=== PATIENT | male | born 1945 | race Caucasian/White ===

== ENCOUNTER 2017-05-29 19:28 | Emergency (ER) | payer MEDICARE ==
[2017-05-29] MEDS ORDERED: BACIGUENT PACKET TP ONE (19:36)
[2017-05-29] MEDS ORDERED: Adacel Vial IM ONE ×3 (19:36→19:45)
[2017-05-29 19:38] VITALS: BP 121/89; PULSE 90; O2SAT 97
[2017-05-29] MEDS ORDERED: BACIGUENT PACKET ONE (19:39)
--- NOTE | 2017-05-29 19:43 | ERPHSYRPT ---
- History of Present Illness Time Seen by Provider: 05/29/17 19:30 Source: patient, family () Exam Limitations: no limitations Physician History: the patient suffered a laceration to the right forearm a few minutes prior to admission when the wind blew the screen door open and look caught the dorsum of the right mid forearm; no other injuries; no other complaints; right handed; tetanus not current and will be brought up-to-date; no numbness or paresthesias distal; local soreness and swelling; minimal bleeding; otherwise acutely healthy ; here with his Occurred: just prior to arrival, this evening Method of Injury: direct blow, incised Quality: aching Severity of Pain-Max: mild Severity of Pain-Current: none Extremities Pain Location: arm: right (mid dorsal) Modifying Factors: Improves With: nothing Associated Symptoms: none Allergies/Adverse Reactions: No Known Drug Allergies Allergy (Verified 01/08/15 20:20) Home Medications: Albuterol 8 gm Mdi Hfa [Ventolin Hfa MDI] 8 gm IH Q4HPRN PRN 01/09/15 [ History] Calcium Citrate/Vitamin D2 [Ab-Citrate Plus Vitamin D Tab] 1 each PO DAILY [History] Esomeprazole Magnesium [Nexium] 40 mg PO DAILY 01/09/15 [History] Loratadine 10 mg [Claritin 10 mg] 10 mg PO DAILY 01/09/15 [History] Simvastatin 20 mg PO DAILY 01/09/15 [History] Vit C/Vit E/Lutein/Min/[place]uthers-3 [Ocuvite Softgel] 1 each PO DAILY 01/09/15 [ History] Hx Tetanus, Diphtheria Vaccination/Date Given: Yes Hx Influenza Vaccination/Date Given: No - Review of Systems Constitutional: No Symptoms Eyes: No Symptoms Ears, Nose, & Throat: No Symptoms Respiratory: No Cough, No Dyspnea, No Wheezing Cardiac: No Chest Pain, No Palpitations, No Syncope Abdominal/Gastrointestinal: No Abdominal Pain, No Nausea, No Vomiting, No Diarrhea Genitourinary Symptoms: No Symptoms Musculoskeletal: Injury (right midforearm), No Back Pain, No Neck Pain, No Fall , No Joint Redness, No Joint Pain Skin: Other (abrasion, laceration, puncture wound right mid forearm dorsally) Neurological: No Focal Weakness, No Paralysis, No Parasthesia Psychological: No Symptoms Endocrine: No Symptoms Immunological/Allergic: No Symptoms - Past Medical History Pertinent Past Medical History: Yes Neurological History: No Pertinent History ENT History: No Pertinent History Cardiac History: High Cholesterol Respiratory History: No Pertinent History Endocrine Medical History: No Pertinent History Musculoskeletal History: No Pertinent History GI Medical History: GERD History: No Pertinent History Psycho-Social History: No Pertinent History Male Reproductive Disorders: No Pertinent History - Past Surgical History Past Surgical History: Yes Neuro Surgical History: No Pertinent History Cardiac: No Pertinent History Respiratory: No Pertinent History Gastrointestinal: No Pertinent History Genitourinary: No Pertinent History Musculoskeletal: Orthopedic Surgery Male Surgical History: No Pertinent History Other Surgical History: right rotator cuff surgery may 2014, cyst removed from scalp in , hernia repair 2001, left ankle surgery ORIF 2003, hardware removed 2005 - Social History Smoking Status: Never smoker Exposure to second hand smoke: No Alcohol Use: Socially Drug Use: none Patient Lives Alone: No Significant Family History: no pertinent family hx - Physical Exam General Appearance: mild distress, alert, thin Eyes, Ears, Nose, Throat Exam: normal ENT inspection, TMs normal, pharynx normal , moist mucous membranes Neck Exam: normal inspection, non-tender, supple, full range of motion, No JVD Cardiovascular/Respiratory Exam: chest non-tender, normal breath sounds, regular rate/rhythm, heart sounds normal, no ecchymosis, no JVD, no M/R/G, no respiratory distress Abdominal Exam: non-tender, soft, no organomegaly Back Exam: normal inspection, normal range of motion, No CVA tenderness Shoulder Exam: normal inspection, non-tender, no evidence of injury, normal ROM Elbow/Forearm Exam: normal inspection, non-tender, no evidence of injury, normal ROM Wrist Exam: normal inspection, non-tender, no evidence of injury (Except mid right forearm dorsally with 2.5 cm abrasion; local induration; small puncture wound; no active bleeding; no foreign body), normal ROM Hand Exam: normal inspection, non-tender, no evidence of injury, normal ROM, laceration (superficial lacerations/abrasion 2.5 cm dorsum right mid forearm), No bone tenderness Neuro/Tendon Exam: normal sensation, normal motor functions, normal tendon functions, responds to pain, no evidence tendon injury Mental Status Exam: alert, oriented x 3, cooperative Skin Exam: normal color, warm, dry, abrasion (2.5 cm dorsum mid right forearm), other (small puncture wound with local induration at end of abrasion dorsal mid right forearm; minimal tenderness; no foreign body; no bleeding), No rash Procedures - Laceration/Wound Repair Right Medial Dorsal Arm Wound Location: Right, lower arm (abrasion/superficial laceration with small puncture wound without bleeding or foreign body;) Wound Length (cm): 2.5 Wound's Depth, Shape: superficial, linear Wound Explored: in bloodless field Irrigated: Yes Hibiclens Prep: Yes Wound Repaired With: Steri-strips Layer Closure?: No Sterile Dressing Applied?: Yes Splint Applied?: No Sling Applied?: No - Course Nursing assessment & vital signs reviewed: Yes Ordered Tests: Active Orders 24 hr Category Date Time Status Wound Care STAT Care 05/29/17 19:36 Ordered - Progress Progress: improved Progress Note: 05/29/17 19:45 treatment plan discussed; instructions given; tetanus given; Counseled pt/family regarding: diagnosis, need for follow-up - Departure Time of Disposition: 19:46 Departure Disposition: Home Clinical Impression: Laceration of right forearm without complication Condition: Stable Critical Care Time: No Instructions: Care for a Laceration After Repair, Laceration Repair Steri- Strips, Puncture Wound Additional Instructions: clean; bacitracin;elevate; ice; observe for infection;Tylenol or ibuprofen over- the-counter PRN Follow-up with family doctor as directed. Call for appointment. Return if any problems. If you smoke please stop. Call or follow up with your family doctor for assistance if you need it to stop. Please wear your seatbelt when driving. Have a nice day. Thank you for allowing us to participate in your care today. :o) Dr Rohit Ordoñez
== END 2017-05-29 20:00 | disposition home or self-care (01) ==
LOC: ED 19:28
PROC: 0HQDXZZ Repair Right Lower Arm Skin, External Approach (ICD-10-PCS; principal; 2017-05-29)
DX: S51.811A Laceration without foreign body of right forearm, initial encounter (principal); W22.8XXA Striking against or struck by other objects, initial encounter
CPT/HCPCS: 12001; 90471; 90715; 99283; A9270-GY

== ENCOUNTER 2020-03-27 05:54 | Day surgery (SDC) | payer MEDICARE ==
[2020-03-27] MEDS ORDERED: Lactated Ringers 1,000 ML IV SCH (06:30)
[2020-03-27 09:38] VITALS: BP 120/78; PULSE 58; O2SAT 96
--- NOTE | 2020-03-27 13:27 | OP ---
SURGERY DATE/TIME: 03/27/2020 0814 PREOPERATIVE DIAGNOSIS: Right lower quadrant abdominal pain and history of colon polyps. POSTOPERATIVE DIAGNOSIS: Sigmoid diverticulosis otherwise normal colon. PROCEDURE: Colonoscopy. SURGEON: Dr. Magana. ANESTHESIA: MAC. Medications given by anesthesia department. HISTORY: The patient is a 75 year-old white male patient who presents now with right lower quadrant abdominal pain. He reports his last colonoscopy was in 2012. He had colonoscopies done every three to four years prior to that time due to the presence of colon polyps. The patient is now felt to have endoscopic evaluation. He was appraised of the risks of the procedure including the risk of perforation, phlebitis, untoward reaction to medication, bleeding and missed lesions. The patient verbalized his understanding and desired to have the procedure performed. DESCRIPTION OF PROCEDURE: The patient was given the medications by the anesthesia department. He had continuous pulse oximetry, ECG monitoring, intermittent blood pressure monitoring and tidal CO2 monitoring during the examination. He was placed in the left lateral decubitus position. A digital rectal examination was performed and revealed normal anal sphincter tone, no masses and a normal prostate. The flexible Olympus pediatric colonoscope was used to intubate the rectum. A view of the colon was developed sequentially to the cecum as identified by the appendiceal orifice and ileocecal valve. Upon insertion and withdrawal, including a retroflex view in the rectum was noted small sigmoid diverticula otherwise no mucosal lesions were encountered. The scope was removed from the patient who tolerated the procedure well and was sent back to OP recovery in good condition. The prep was noted to be good.
== END 2020-03-27 09:50 | disposition home or self-care (01) ==
LOC: SDC 05:54
PROVIDERS: ATTEND Family Medicine
DX: K57.30 Diverticulosis of large intestine without perforation or abscess without bleeding (principal); Z86.010 Personal history of colon polyps
CPT/HCPCS: 99100

== ENCOUNTER 2022-04-07 06:43 | Emergency (ER) | payer MEDICARE ==
--- NOTE | 2022-04-07 07:22 | ERPHSYRPT ---
- History of Present Illness Time Seen by Provider: 04/07/22 07:10 Historian: patient Exam Limitations: no limitations Patient Subjective Stated Complaint: pt states he has had diarrhea since 0000, states he has some abdominal discomfort Triage Nursing Assessment: pt alert and oriented, answer questions appropriatly. abdominal pain is rated at 4/10 Physician History: This is a 77-year-old white male patient of Dr. Magana who is had no prior abdominal surgeries and his last colonoscopy was normal and was performed a pproximately 2 to 3 years ago and presents with sudden onset of crampy abdominal pain and multiple episodes of diarrhea since midnight last night. Diarrhea is not black or bloody. The stools ultimately became watery. He has never had any like this before. Patient arrives to the emergency department and has no more crampy abdominal pain that he was experiencing prior to arrival. He denies naus ea. He has no chest pain. He is a little short of breath. However he sees a diamond wheel molder for this and he wears a unit for sleep apnea at night. He presents with room air oxygen in the 70% range. 2 L oxygen was placed on him upon arrival to the emergency department and now his oxygen saturations are 99%. The crampy abdominal pain was bilateral lower quadrants. Patient has a history of sleep apnea, hypertension, elevated cholesterol, gastroesophageal reflux disease and COPD. Timing/Duration: today Quality: cramping Abdominal Pain Onset Location: RLQ, LLQ Pain Radiation: no radiation Severity of Pain-Max: moderate Severity of Pain-Current: none Associated Symptoms: diarrhea, No fever/chills, No vomiting Previous symptoms: no prior history Allergies/Adverse Reactions: No Known Drug Allergies Allergy (Verified 04/07/22 06:57) Home Medications: Albuterol 8 gm Mdi Hfa [Ventolin Hfa MDI] 8 gm IH Q4HPRN PRN 01/09/15 [History] Esomeprazole Magnesium [Nexium] 40 mg PO DAILY 01/09/15 [History] Simvastatin 20 mg PO DAILY 01/09/15 [History] Vit C/Vit E/Lutein/Min/[place]-3 [Ocuvite Softgel] 1 each PO DAILY 01/09/15 [History] Ascorbic Acid 500 mg [Vitamin C 500 MG] 1,000 mg PO DAILY 01/02/20 [History] Lactobacillus Acidophilus [Probiotic] 1 each PO DAILY 01/02/20 [History] Cholecalciferol (Vitamin D3) [Vitamin D3] 1,000 unit PO DAILY 03/27/20 [History] Aspirin 81 gm Chew [Baby Aspirin 81 mg Chew] 81 mg PO DAILY 04/07/22 [History] Metoprolol Tartrate 25 mg [Lopressor 25MG Tab] 25 mg PO DAILY 04/07/22 [ History] Hx Tetanus, Diphtheria Vaccination/Date Given: Yes Hx Influenza Vaccination/Date Given: Yes Hx Pneumococcal Vaccination/Date Given: Yes Immunizations Up to Date: Yes Travel Risk - International Travel Have you traveled outside of the country in past 3 weeks: No - Coronavirus Screening Are you exhibiting any of the following symptoms?: No Close contact with a COVID-19 positive Pt in past 14-21 Days: No - Vaccine Status Have you recieved a Covid-19 vaccination: Yes Utility Pipe Layer: Moderna - Vaccination Dates Date of 2cond Vaccination (if applicable): unknown - Review of Systems Constitutional: No Symptoms Eyes: No Symptoms Ears, Nose, & Throat: No Symptoms Respiratory: No Symptoms Cardiac: No Symptoms Abdominal/Gastrointestinal: Abdominal Pain (Bilateral lower quadrant cramping), Diarrhea, No Nausea, No Vomiting, No Constipation Genitourinary Symptoms: No Symptoms Musculoskeletal: No Symptoms Skin: No Symptoms Neurological: No Symptoms Psychological: No Symptoms Endocrine: No Symptoms Hematologic/Lymphatic: No Symptoms Immunological/Allergic: No Symptoms All Other Systems: Reviewed and Negative - Past Medical History Pertinent Past Medical History: Yes Neurological History: No Pertinent History ENT History: No Pertinent History Cardiac History: High Cholesterol, Other Respiratory History: Asthma, COPD, Other Endocrine Medical History: No Pertinent History Musculoskeletal History: No Pertinent History GI Medical History: GERD History: No Pertinent History Psycho-Social History: No Pertinent History Male Reproductive Disorders: No Pertinent History Other Medical History: heart murmur. Short of breath and sees Dr. Puentes. skin cancer on face - Past Surgical History Past Surgical History: Yes Neuro Surgical History: No Pertinent History Cardiac: No Pertinent History Respiratory: No Pertinent History Gastrointestinal: Hernia Repair Genitourinary: No Pertinent History Musculoskeletal: Orthopedic Surgery Male Surgical History: No Pertinent History Other Surgical History: right rotator cuff surgery may 2014, cyst removed from scalp in 1970s, hernia repair 2001, left ankle surgery ORIF 2003, hardware removed 2005 - Social History Smoking Status: Former smoker Exposure to second hand smoke: No Alcohol Use: Socially Drug Use: none Patient Lives Alone: No Significant Family History: no pertinent family hx - Nursing Vital Signs Nursing Vital Signs: Initial Vital Signs Temperature 98.6 F 04/07/22 06:46 Pulse Rate 57 L 04/07/22 06:46 Respiratory Rate 18 04/07/22 06:46 Blood Pressure 100/64 04/07/22 06:46 O2 Sat by Pulse Oximetry 99 04/07/22 06:46 Pain Scale Pain Intensity 4 - Physical Exam General Appearance: no apparent distress, alert Eye Exam: PERRL/EOMI, eyes nml inspection Ears, Nose, Throat Exam: normal ENT inspection, moist mucous membranes Neck Exam: normal inspection, non-tender, supple, full range of motion Respiratory Exam: normal breath sounds, lungs clear, airway intact, No chest tenderness, No respiratory distress Cardiovascular Exam: regular rate/rhythm, normal heart sounds, normal peripheral pulses Gastrointestinal/Abdomen Exam: soft, normal bowel sounds, tenderness (Mild bilateral lower quadrant tenderness to palpation), guarding, No rebound Rectal Exam: not done Back Exam: normal inspection, normal range of motion, No CVA tenderness, No vertebral tenderness Extremity Exam: normal inspection, normal range of motion, pelvis stable Neurologic Exam: alert, oriented x 3, cooperative, pan washer hand II-XII nml as tested Skin Exam: normal color, warm, dry Lymphatic Exam: No adenopathy SpO2 Interpretation: normal SpO2: 99 O2 Delivery: Room Air - Course Nursing assessment & vital signs reviewed: Yes Ordered Tests: Active Orders 24 hr Category Date Time Status IV Insertion STAT Care 04/07/22 07:23 Active ABDOMEN AND PELVIS W/0 CONTRAS [CT] Stat Exams 04/07/22 07:23 Completed AMYLASE Stat Lab 04/07/22 07:30 Completed CBC W DIFF Stat Lab 04/07/22 07:30 Completed CMP Stat Lab 04/07/22 07:30 Completed LIPASE Stat Lab 04/07/22 07:30 Completed Lactic Acid Stat Lab 04/07/22 07:23 Completed UA W/RFX CULTURE Stat Lab 04/07/22 Ordered Medication Summary Generic Name Dose Route Start Last Admin Trade Name Freq PRN Reason Stop Dose Admin Sodium Chloride 1,000 mls @ 100 mls/hr 04/07/22 07:30 04/07/22 07:26 Sodium Chloride 0.9% 1000 Ml IV 05/07/22 07:29 100 mls/hr .Q10H DARREN Administration Lab/Rad Data: Laboratory Result Diagrams 04/07/22 07:30 04/07/22 07:30 Laboratory Results 04/07/22 04/07/22 04/07/22 Range/Units 07:30 07:30 07:23 WBC 6.0 (4.0-10.5) x10^3/uL RBC 4.55 (4.1-5.6) x10^6/uL Hgb 14.8 (12.5-18.0) g/dL Hct 45.2 (42-50) % MCV 99.3 (78-100) fL MCH 32.5 H (26-32) pg MCHC 32.7 (32-36) g/dL RDW 12.9 (11.5-14.0) % Plt Count 164 (150-450) x10^3/uL MPV 9.6 (7.5-11.0) fL Gran % 78.8 H (36.0-66.0) % Immature Gran % (Auto) 0.5 H (0.00-0.4) % Nucleat RBC Rel Count 0.0 (0.00-0.1) % Eos # (Auto) 0.09 (0-0.5) x10^3/uL Immature Gran # (Auto) 0.03 (0.00-0.03) x10^3u/L Absolute Lymphs (auto) 0.84 L (1.0-4.6) x10^3/uL Absolute Monos (auto) 0.30 (0.0-1.3) x10^3/uL Absolute Nucleated RBC 0.00 (0.00-0.01) x10^3u/L Lymphocytes % 13.9 L (24.0-44.0) % Monocytes % 5.0 (0.0-12.0) % Eosinophils % 1.5 (0.00-5.0) % Basophils % 0.3 (0.0-0.4) % Absolute Granulocytes 4.75 (1.4-6.9) x10^3/uL Basophils # 0.02 (0-0.4) x10^3/uL Sodium 139 (137-145) mmol/L Potassium 4.8 (3.5-5.1) mmol/L Chloride 108 H (98-107) mmol/L Carbon Dioxide 26 (22-30) mmol/L Anion Gap 10.1 (5-15) MEQ/L BUN 16 (9-20) mg/dL Creatinine 0.95 (0.66-1.25) mg/dL Estimated GFR > 60.0 ML/MIN Glucose 124 H (74-106) mg/dL Lactic Acid 1.6 (0.4-2.0) Calcium 8.6 (8.4-10.2) mg/dL Total Bilirubin 1.10 (0.2-1.3) mg/dL AST 32 (17-59) U/L ALT 13 (0-50) U/L Alkaline Phosphatase 65 (38-126) U/L Serum Total Protein 5.8 L (6.3-8.2) g/dL Albumin 3.5 (3.5-5.0) g/dL Amylase 88 (30-110) U/L Lipase 79 (23-300) U/L - Progress Progress: improved, pain not gone completely Progress Note: 04/07/22 09:04 CAT scan of the abdomen pelvis shows new mild sigmoid diverticulitis. No other acute intra-abdominal or intrapelvic findings. Counseled pt/family regarding: lab results, diagnosis, need for follow-up, rad results - Departure Departure Disposition: Home Clinical Impression: Sigmoid diverticulitis Condition: Stable Critical Care Time: No Referrals: RAYMOND MAGANA [Primary Care Provider] - Follow up/PCP as directed Additional Instructions: Drink plenty of clear liquids. Take your antibiotics and medication as prescribed. Return to the emergency department if symptoms worsen. Follow-up with your primary care provider for further management. Prescriptions: Ondansetron ODT 4 MG [Zofran Odt 4 mg] 4 mg PO Q6H PRN PRN #10 tablet PRN Reason: Vomiting Ciprofloxacin [Cipro 500 MG] 500 mg PO BID #14 tablet Metronidazole 500 mg [Flagyl 500 MG] 500 mg PO TID #21 tablet
[2022-04-07] MEDS ORDERED: Sodium Chloride 0.9% 1000 ML 1,000 ML ONE (07:25)
[2022-04-07] MEDS ORDERED: Sodium Chloride 0.9% 1000 ML 1,000 ML IV SCH (07:30)
[2022-04-07 07:40] LABS: Absolute Neutrophil Ct (ANC) 4.75 x10^3/uL (1.4-6.9); Basophil (Absolute #) 0.02 x10^3/uL (0-0.4); Eosinophil % 1.5 % (0.00-5.0); Eosinophil (Absolute #) 0.09 x10^3/uL (0-0.5); Hematocrit 45.2 % (42-50); Hemoglobin 14.8 g/dL (12.5-18.0); Lymphocyte (Absolute #) 0.84 x10^3/uL (1.0-4.6); Lymphocytes % 13.9 % (24.0-44.0); Mean Cell Volume 99.3 fL (78-100); Mean Corpuscular Hemoglobin 32.5 pg (26-32); Mean Corpuscular Hgb Concent. 32.7 g/dL (32-36); Mean Platelet Volume 9.6 fL (7.5-11.0); Neutrophil % 78.8 % (36.0-66.0); Platelet Count 164 x10^3/uL (150-450); Red Blood Count 4.55 x10^6/uL (4.1-5.6); Red Cell Distribution Width 12.9 % (11.5-14.0)
[2022-04-07 07:49] LABS: ALBUMIN 3.5 g/dL (3.5-5.0); ALKALINE PHOSPHATASE 65 U/L (38-126); AMYLASE 88 U/L (30-110); ANION GAP 10.1 MEQ/L (5-15); BLOOD UREA NITROGEN 16 mg/dL (9-20); CHLORIDE 108 mmol/L (98-107); Calcium 8.6 mg/dL (8.4-10.2); Carbon Dioxide 26 mmol/L (22-30); Creatinine 1 0.95 mg/dL (0.66-1.25); EST GLOMERULAR FILTRATION RATE > 60.0 ML/MIN; Glucose 124 mg/dL (74-106); LIPASE 79 U/L (23-300); Potassium 4.8 mmol/L (3.5-5.1); SGOT/AST 32 U/L (17-59); SGPT/ALT 13 U/L (0-50); SODIUM 139 mmol/L (137-145); Total Protein 5.8 g/dL (6.3-8.2)
--- NOTE | 2022-04-07 08:39 | XRAY ---
Indication: Abdomen pain and diarrhea. Multiple contiguous axial images obtained through the abdomen and pelvis without contrast. Comparison: January 08, 2015. Lung bases clear. Heart not enlarged. Noncontrasted stomach and bowel loops appear nonobstructed with normal appendix. Again mild scattered sigmoid diverticulosis with new descending diverticulosis. Distal descending/proximal sigmoid demonstrates new minimal pericolonic stranding favoring diverticulitis. No free fluid/air. Gallbladder mildly distended without gallstones. Right kidney demonstrates new nonobstructing micro-calculi, largest 2 mm. Left kidney demonstrates stable parapelvic cysts. Remaining liver, gallbladder, pancreas, spleen, adrenal glands, kidneys, ureters, and bladder are unremarkable for noncontrast exam. Mild scattered aortoiliac calcifications without AAA. Osseous structures intact with mild osteopenia and mild/moderate degenerative changes throughout the thoracolumbar spine. Impression: 1. More diffuse scattered colonic diverticulosis. New mild distal descending/proximal sigmoid diverticulitis without complications. 2. Mild distended gallbladder without gallstones. Sonogram may yield further information if clinically warranted. 3. New nonobstructing right renal micro-calculi. Stable left renal cysts. 4. Again osteopenia and multilevel degenerative spondylosis.
[2022-04-07] MEDS ORDERED: Flagyl 500 MG PO ONE (09:06)
[2022-04-07] MEDS ORDERED: Levofloxacin 500 MG Tablet PO ONE (09:06)
[2022-04-07] MEDS ORDERED: Levofloxacin 500 MG Tablet ONE (09:12)
[2022-04-07] MEDS ORDERED: Flagyl 500 MG ONE (09:13)
[2022-04-07 10:11] VITALS: BP 112/68; PULSE 64; O2SAT 100
== END 2022-04-07 10:27 | disposition home or self-care (01) ==
LOC: ED 06:43
DX: K57.32 Diverticulitis of large intestine without perforation or abscess without bleeding (principal); R10.31 Right lower quadrant pain; R10.32 Left lower quadrant pain; R19.7 Diarrhea, unspecified; I10 Essential (primary) hypertension; E78.5 Hyperlipidemia, unspecified; J44.9 Chronic obstructive pulmonary disease, unspecified; Z79.899 Other long term (current) drug therapy
CPT/HCPCS: 36000; 36415; 74176; 80053; 82150; 83605; 83690; 85025; 99284; A9270-GY

== ENCOUNTER 2022-05-28 18:40 | Emergency (ER) | payer MEDICARE ==
--- NOTE | 2022-05-28 18:43 | ERPHSYRPT ---
- History of Present Illness Time Seen by Provider: 05/28/22 18:43 Source: patient Exam Limitations: no limitations Physician History: This is a right handed 77-year-old white male who was changing a carpet knife blade when it accidentally cut his left thumb. Patient is unsure of his last tetanus shot. He wanted to his laceration evaluated. Occurred: just prior to arrival Method of Injury: other Severity of Pain-Max: mild Severity of Pain-Current: none Extremities Pain Location: thumb: left Modifying Factors: Improves With: nothing Associated Symptoms: none Allergies/Adverse Reactions: No Known Drug Allergies Allergy (Verified 05/28/22 18:45) Home Medications: Albuterol 8 gm Mdi Hfa [Ventolin Hfa MDI] 8 gm IH Q4HPRN PRN 01/09/15 [History] Esomeprazole Magnesium [Nexium] 40 mg PO DAILY 01/09/15 [History] Simvastatin 20 mg PO DAILY 01/09/15 [History] Vit C/Vit E/Lutein/Min/[place]-3 [Ocuvite Softgel] 1 each PO DAILY 01/09/15 [History] Ascorbic Acid 500 mg [Vitamin C 500 MG] 1,000 mg PO DAILY 01/02/20 [History] Lactobacillus Acidophilus [Probiotic] 1 each PO DAILY 01/02/20 [History] Cholecalciferol (Vitamin D3) [Vitamin D3] 1,000 unit PO DAILY 03/27/20 [History] Aspirin 81 gm Chew [Baby Aspirin 81 mg Chew] 81 mg PO DAILY 04/07/22 [History] Metoprolol Tartrate 25 mg [Lopressor 25MG Tab] 25 mg PO DAILY 04/07/22 [History] Hx Tetanus, Diphtheria Vaccination/Date Given: Yes Hx Influenza Vaccination/Date Given: Yes Hx Pneumococcal Vaccination/Date Given: Yes Travel Risk - International Travel Have you traveled outside of the country in past 3 weeks: No - Coronavirus Screening Are you exhibiting any of the following symptoms?: No Close contact with a COVID-19 positive Pt in past 14-21 Days: No - Vaccine Status Have you recieved a Covid-19 vaccination: Yes 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 - Vaccination Dates Date of 2cond Vaccination (if applicable): unknown - Review of Systems Constitutional: No Symptoms Eyes: No Symptoms Ears, Nose, & Throat: No Symptoms Respiratory: No Symptoms Cardiac: No Symptoms Abdominal/Gastrointestinal: No Symptoms Genitourinary Symptoms: No Symptoms Musculoskeletal: No Symptoms Skin: Other (Laceration tip of left thumb) Neurological: No Symptoms Psychological: No Symptoms Endocrine: No Symptoms Hematologic/Lymphatic: No Symptoms Immunological/Allergic: No Symptoms All Other Systems: Reviewed and Negative - Past Medical History Pertinent Past Medical History: Yes Neurological History: No Pertinent History ENT History: No Pertinent History Cardiac History: High Cholesterol, Other Respiratory History: Asthma, COPD, Other Endocrine Medical History: No Pertinent History Musculoskeletal History: No Pertinent History GI Medical History: GERD History: No Pertinent History Psycho-Social History: No Pertinent History Male Reproductive Disorders: No Pertinent History Other Medical History: heart murmur. Short of breath and sees Dr. Puentes. skin cancer on face - Past Surgical History Past Surgical History: Yes Neuro Surgical History: No Pertinent History Cardiac: No Pertinent History Respiratory: No Pertinent History Gastrointestinal: Hernia Repair Genitourinary: No Pertinent History Musculoskeletal: Orthopedic Surgery Male Surgical History: No Pertinent History Other Surgical History: right rotator cuff surgery may 2014, cyst removed from scalp in , hernia repair 2001, left ankle surgery ORIF 2003, hardware removed 2005 - Social History Smoking Status: Former smoker Exposure to second hand smoke: No Alcohol Use: Socially Drug Use: none Patient Lives Alone: No Significant Family History: no pertinent family hx - Nursing Vital Signs Nursing Vital Signs: Initial Vital Signs Temperature 97.6 F 05/28/22 18:47 Pulse Rate 89 05/28/22 18:47 Respiratory Rate 18 05/28/22 18:47 Blood Pressure 116/73 05/28/22 18:47 O2 Sat by Pulse Oximetry 98 05/28/22 18:47 Pain Scale Pain Intensity 0 - Physical Exam General Appearance: no apparent distress, alert Eyes, Ears, Nose, Throat Exam: normal ENT inspection, moist mucous membranes Neck Exam: normal inspection, non-tender, supple, full range of motion Cardiovascular/Respiratory Exam: chest non-tender, no respiratory distress Abdominal Exam: non-tender Back Exam: normal inspection, normal range of motion, No CVA tenderness, No vertebral tenderness Shoulder Exam: normal inspection, non-tender, no evidence of injury, normal ROM Elbow/Forearm Exam: normal inspection, non-tender, no evidence of injury, normal ROM Wrist Exam: normal inspection, non-tender, no evidence of injury, normal ROM Hand Exam: non-tender, normal ROM, laceration (1 cm tip of left thumb. Semicircular skin flap without bleeding or foreign body. Neurovascularly intact. Tendons intact. No nail injury) Skin Exam: laceration (See above) SpO2 Interpretation: normal Procedures - Laceration/Wound Repair Left Distal Finger Time of Procedure: 19:30 Wound Location: Left Wound Length (cm): 1 Wound's Depth, Shape: superficial, flap Wound Explored: clean Irrigated: Yes Hibiclens Prep: Yes Wound Repaired With: Steri-strips (Benzoin), Dermabond - Course Nursing assessment & vital signs reviewed: Yes - Progress Progress: improved Counseled pt/family regarding: diagnosis, need for follow-up - Departure Departure Disposition: Home Clinical Impression: Laceration of thumb Condition: Stable Critical Care Time: No Referrals: RAYMOND BRITO [Primary Care Provider] - Follow up/PCP as directed Additional Instructions: Keep the dressing in place for 24 hours. After 24 hours may remove the top dressing and leave the Steri-Strips in place. Keep the Steri-Strips in place until they fall off on their own in approximately 7 days.
[2022-05-28] MEDS ORDERED: Adacel Vial IM ONE ×2 (19:25→19:31)
[2022-05-28 19:51] VITALS: BP 101/63; PULSE 79; O2SAT 96
== END 2022-05-28 19:51 | disposition home or self-care (01) ==
LOC: ED 18:40
DX: S61.012A Laceration without foreign body of left thumb without damage to nail, initial encounter (principal); W26.0XXA Contact with knife, initial encounter; E78.5 Hyperlipidemia, unspecified; J44.9 Chronic obstructive pulmonary disease, unspecified; Z79.899 Other long term (current) drug therapy
CPT/HCPCS: 12001; 90471; 90715; 99282

== ENCOUNTER 2024-10-19 09:25 | Emergency (ER) | payer MEDICARE ==
[2024-10-19 09:40] VITALS: PULSE 50; RESP 18; TEMP 97.2; O2SAT 98
--- NOTE | 2024-10-19 10:04 | ERPHSYRPT ---
- History of Present Illness Time Seen by Provider: 10/19/24 09:58 Source: patient Exam Limitations: no limitations Patient Subjective Stated Complaint: PT HERE FOR DOG BITE TO RIGHT THUMB TODAY, HE STATES HE STARTLED HES DOG Triage Nursing Assessment: PT ALERT, WALKED IN, RESP EASY, SKIN W/D/P. HAS LACERATION TO RIGHT THUMB, SMALL AMOUNT OF BLEEDING, PRESSURE DRESSING Physician History: Patient is 79-year-old male was bitten by his dog on his right thumb. Incidents happened approximately half an hour before patient came to the emergency room. Patient has a minimal bleeding from the right thumb. Patient has a superficial laceration on the tuft of the thumb distal phalanx as well as some nail elevation. Patient denies any other injury. Patient is not sure when his last tetanus shot was. Denies any other symptoms. Timing/Duration: today Associated Symptoms: denies symptoms Allergies/Adverse Reactions: No Known Drug Allergies Allergy (Verified 10/19/24 09:32) Home Medications: Albuterol 8 gm Mdi Hfa [Ventolin Hfa MDI] 8 gm IH Q4HPRN PRN 01/09/15 [History] Esomeprazole Magnesium [Nexium] 40 mg PO DAILY 01/09/15 [History] Simvastatin 20 mg PO DAILY 01/09/15 [History] Vit C/Vit E/Lutein/Min/[place]-3 [Ocuvite Softgel] 1 each PO DAILY 01/09/15 [History] Ascorbic Acid 500 mg [Vitamin C 500 MG] 1,000 mg PO DAILY 01/02/20 [History] Lactobacillus Acidophilus [Probiotic] 1 each PO DAILY 01/02/20 [History] Cholecalciferol (Vitamin D3) [Vitamin D3] 1,000 unit PO DAILY 03/27/20 [History] Aspirin 81 gm Chew [Baby Aspirin 81 mg Chew] 81 mg PO DAILY 04/07/22 [History] Metoprolol Tartrate 25 mg [Lopressor 25MG Tab] 25 mg PO DAILY 04/07/22 [History] Hx Tetanus, Diphtheria Vaccination/Date Given: No Hx Influenza Vaccination/Date Given: Yes Hx Pneumococcal Vaccination/Date Given: Yes Immunizations Up to Date: Yes Travel Risk - International Travel Have you traveled outside of the country in past 3 weeks: No - Emerging Infectious Disease Are you exhibiting symptoms associated with any current EIDs: No - Review of Systems Constitutional: No Fever, No Chills Eyes: No Symptoms Ears, Nose, & Throat: No Symptoms Respiratory: No Cough, No Dyspnea Cardiac: No Chest Pain, No Edema, No Syncope Abdominal/Gastrointestinal: No Abdominal Pain, No Nausea, No Vomiting, No Diarrhea Genitourinary Symptoms: No Dysuria Musculoskeletal: No Back Pain, No Neck Pain Skin: Other (dog bite on right thumb), No Rash Neurological: No Dizziness, No Focal Weakness, No Sensory Changes Psychological: No Symptoms Endocrine: No Symptoms All Other Systems: Reviewed and Negative - Past Medical History Pertinent Past Medical History: Yes Neurological History: Alzheimer's Disease ENT History: No Pertinent History Cardiac History: Arrhythmia, High Cholesterol, Hypertension Respiratory History: COPD, Sleep Apnea Endocrine Medical History: No Pertinent History Musculoskeletal History: Fractures GI Medical History: GERD History: No Pertinent History Psycho-Social History: No Pertinent History Male Reproductive Disorders: No Pertinent History Other Medical History: HX FX ANKLE WITH ORIF 2003 AND WRIST (CASTED) AT AGE 15. - Past Surgical History Past Surgical History: Yes Neuro Surgical History: No Pertinent History Cardiac: No Pertinent History Respiratory: No Pertinent History Gastrointestinal: Hernia Repair Genitourinary: No Pertinent History Musculoskeletal: Orthopedic Surgery Male Surgical History: No Pertinent History Other Surgical History: right rotator cuff surgery may 2014, cyst removed from scalp in , hernia repair 2001, left ankle surgery ORIF 2003, hardware removed 2005 Significant Family History: no pertinent family hx - Social History Smoking Status: Former smoker Exposure to second hand smoke: No Alcohol Use: Socially Drug Use: none Patient Lives Alone: No - Social Determinants of Health Will the patient participate in the screening: Declined to provide - Nursing Vital Signs Nursing Vital Signs: Initial Vital Signs Temperature 97.2 F 10/19/24 09:39 Pulse Rate 50 L 10/19/24 09:39 Respiratory Rate 18 10/19/24 09:39 Blood Pressure 119/66 10/19/24 09:39 O2 Sat by Pulse Oximetry 98 10/19/24 09:39 Pain Scale Pain Intensity 4 - Physical Exam General Appearance: no apparent distress, alert Eye Exam: PERRL/EOMI, eyes nml inspection Ears, Nose, Throat Exam: normal ENT inspection, TMs normal, pharynx normal, moist mucous membranes Neck Exam: normal inspection, non-tender, supple, full range of motion Respiratory Exam: normal breath sounds, lungs clear, No respiratory distress Cardiovascular Exam: regular rate/rhythm, normal heart sounds, normal peripheral pulses Gastrointestinal/Abdomen Exam: soft, normal bowel sounds, No tenderness, No mass Back Exam: normal inspection, normal range of motion, No CVA tenderness, No vertebral tenderness Extremity Exam: normal inspection, normal range of motion, pelvis stable Neurologic Exam: alert, oriented x 3, cooperative, normal mood/affect, nml cerebellar function, nml station & gait, sensation nml, No motor deficits Skin Exam: normal color, warm, dry, laceration (right thumb, superficial), other, No rash Lymphatic Exam: No adenopathy SpO2 Interpretation: normal SpO2: 98 O2 Delivery: Room Air Procedures - Laceration/Wound Repair Right Finger Time of Procedure: 10:02 Wound Location: Right (thumb) Wound Length (cm): 1 Wound's Depth, Shape: superficial Wound Explored: clean Irrigated: Yes Hibiclens Prep: Yes Wound Repaired With: Steri-strips, Dermabond Sterile Dressing Applied?: Yes Splint Applied?: Yes - Course Nursing assessment & vital signs reviewed: Yes Ordered Tests: Active Orders 24 hr Category Date Time Status Wound Care STAT Care 10/19/24 09:41 Active Medication Summary Discontinued Medications Generic Name Dose Route Start Last Admin Trade Name Shannon PRN Reason Stop Dose Admin Ceftriaxone Sodium 1,000 mg 10/19/24 09:42 Ceftriaxone Sodium 1000 Mg Inj Vial IM 10/19/24 09:43 STAT ONE Diphtheria/Tetanus/Acell Pertussis 0.5 ml 10/19/24 09:42 Tdap --Diph,Pertuss(Acell),Tet Vac/Pf 0.5 Ml Vial IM 10/19/24 09:43 .ONCE ONE - Progress Progress: improved Counseled pt/family regarding: diagnosis, need for follow-up Medical Desision Making - Diagnostic Testing Diagnostic test were ordered, analyzed, and reviewed by me: No - Risk of complications Minimal Risk: Minimal risk of morbidity - Departure Departure Disposition: Home Clinical Impression: Dog bite of right thumb Qualifiers: Encounter type: initial encounter Qualified Code(s): S61.051A - Open bite of right thumb without damage to nail, initial encounter; W54.0XXA - Bitten by dog, initial encounter Condition: Stable Critical Care Time: No Referrals: RAYMOND BRITO [Primary Care Provider] - Follow up with PCP 2 days Instructions: Laceration Repair With Glue (DC), Wound Care (DC), Animal Bites ED Additional Instructions: Discharge/Care Plan LOUANN COATES was seen on 10/19/24 in the Emergency Room. The patient was counseled regarding Diagnosis,Lab results, Imaging studies, need for follow up and when to return to the Emergency Room. Prescriptions given: Discharge Note I have spoken with the patient and/or caregivers. I have explained the patient's condition, diagnosis and treatment plan based on the information available to me at this time. I have answered the patient's and/or caregiver's questions and addressed any concerns. The patient and/or caregivers have as good understanding of the patient's diagnosis, condition and treatment plan as can be expected at this point. The vital signs have been stable. The patient's condition is stable and appropriate for discharge from the emergency department. The patient will pursue further outpatient evaluation with the primary care physician or other designated or consulting physician as outlined in the discharge instructions. The patient and/or caregivers are agreeable to this plan of care and follow-up instructions have been explained in detail. The patient and/or caregivers have received these instruction. The patient/and or caregivers are aware that any significant change in condition or worsening of symptoms should prompt an immediate return to this or the closest emergency department or call 911. LOUANN COATES was seen on 10/19/24 n the Emergency Room. At that time you were treated for an emergent condition, during your visit Laboratory, Radiology and/or other procedures may have been ordered. It is very important that you follow-up with your Primary Care Physician RAYMOND BRITO within the next 24-48 hours to review your Emergency Room visit and the final results of testing that was ordered. Some test results such as Urine Cultures, Blood Cultures, and other cultures if ordered will not be finalized for 24-48 hours. If you do not have a Primary Care Provider please call the medical records department at [phone] ext [phone] to obtain a copy of your results or you may sign into our patient portal to obtain these results by visiting us @ [email or web address] and completing the following steps: 1. Click on the Patient Portal link 2. Click the Patient Self Enrollment Link to complete the enrollment form and entering your 3. Once the enrollment form is completed you will receive an email with a temporary ID and password at the email address you provided. 4. Next choose a user name and password. Your user name must be at least 4 characters long and your password must be at least 4 characters long. 5. Choose a security question from the list and provide your answer to the question. If you already have signed into the Health Portal you may access your Health Care Information 18/05 by the following steps: 1. Login to our website @ [email or web address] 2. Enter your original user name and password. FAQS The [facility] Health Portal is an online tool that contains your Lab Results, Radiology Reports, Visit History, Discharge Instructions and Health Summary Lab and Radiology Results will not be available for 72 hours on the portal. The Portal is a secure site, passwords are encryted and URLs are re-written so they cannot be copied and pasted. You and authorized family members are the only ones who can access your Portal. Also there is a timeout feature that protects your information if you leave the Portal page open. If you have technical difficulty please use the Contact Us link on the page this will allow you to submit any questions you have regarding the Portal or you may contact the Medical Record Department at [phone] ext [phone]. Prescriptions: Cephalexin Mh 500 mg [Keflex 500 mg] 500 mg PO Q6H #40 cap
[2024-10-19] MEDS ORDERED: Rocephin 1000 MG INJ ONE (10:06)
[2024-10-19] MEDS ORDERED: XYLOCAINE 1% HCL 20 ML MDV ONE (10:06)
[2024-10-19] MEDS ORDERED: Adacel Vial IM ONE (10:07)
[2024-10-19] MEDS: Rocephin 1000 MG INJ IM ONE (10:09)
[2024-10-19] MEDS: Adacel Vial IM ONE (10:10)
[2024-10-19 11:03] VITALS: BP 110/60
== END 2024-10-19 10:15 | disposition home or self-care (01) ==
LOC: ED 09:25
DX: S61.051A Open bite of right thumb without damage to nail, initial encounter (principal); W54.0XXA Bitten by dog, initial encounter
CPT/HCPCS: 12001; 90471; 90715; 96372; 99283; J0696